=== PATIENT | male | born 1985 | race Caucasian/White ===

== ENCOUNTER 2016-11-14 03:31 | Emergency (ER) | payer MEDICARE, MEDICAID ==
[~2016-11-14 03:31] MED LIST: CELE10TA; KEPPRA; VICO5TAB; XANA0.25
[2016-11-14] MEDS ORDERED: MORPHINE 4 MG/ML 1ML SYRINGE As Ordered ONE ×2 (03:45→04:03)
[2016-11-14] MEDS ORDERED: ONDANSETRON 4MG/2ML VIAL (J2405) As Ordered ONE (03:45)
[2016-11-14 04:00] LABS: CARBOXYHEMOGLOBIN 2.1 % (0.0-1.5); VENOUS BASE EXCESS -1.1 (-2.0-2.0); VENOUS O2 SATURATION 65.7 % (60.0-80.0); VENOUS PARTIAL PRESSURE CO2 55.9 mmHg (38.0-50.0); VENOUS PARTIAL PRESSURE O2 36.2 mmHg (30.0-50.0); VENOUS STANDARD HCO3 22.7 MEQ/L; VENOUS TOTAL CO2 28.4 MEQ/L (24.0-28.0)
[2016-11-14] MEDS ORDERED: HYDROmorphone HCL 1 MG/ML SYRINGE (J1170) As Ordered ONE ×3 (04:30→07:49)
[2016-11-14] MEDS ORDERED: SILVER SULFADIAZINE 1% CR 50 GM JAR As Ordered ONE (05:50)
[2016-11-14] MEDS ORDERED: KETOROLAC 30 MG/ML VIAL (J1885) As Ordered ONE (07:08)
--- NOTE | 2016-11-14 08:16 | REP ---
Portable chest: Single view. History: Cough Comparison study: November 12, 2015. Findings: EKG monitoring electrodes overlie the chest. Lungs are well inflated and clear. Pleural angles are sharp. Heart is not enlarged. Pulmonary vasculature is not increased. Impression: No active disease. Signed by Onesimo Norton MD 11/14/2016 08:08 A
--- NOTE | 2016-11-14 08:31 | REP ---
Right foot series: AP and lateral two views. History: Deformity and swelling. Findings: There is Achilles and plantar calcaneal spurring. Fragmented spurring is seen at the distal Achilles tendon insertion. Overall mineralization pattern is normal. No fracture is seen. Impression: Limited study. No acute bony abnormality. Heel spurs. Signed by Onesimo Norton MD 11/14/2016 08:47 A
[2016-11-14] MEDS ORDERED: ADACEL/BOOSTRIX VACCINE (DIPHTH/PERTUSS/ACELL/TETANUS)0.5ML SYR (90715) As Ordered ONE (08:52)
[2016-11-14] MEDS ORDERED: PERCOCET 5MG/325MG TAB As Ordered ONE (08:52)
[2016-11-14] MEDS ORDERED: POLYSPORIN TOPICAL OINTMENT 15GM As Ordered ONE (09:51)
[2016-11-14] MEDS ORDERED: OXYCODONE/APAP 5MG/325MG(BULK) 1 TAB TAB As Ordered ONE (10:08)
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
== END 2016-11-14 10:22 | disposition home or self-care (01) ==
LOC: M ED 03:31
DX: J70.5 Respiratory conditions due to smoke inhalation (principal); T34.821A Frostbite with tissue necrosis of right foot, initial encounter; T20.17XA Burn of first degree of neck, initial encounter; T20.211A Burn of second degree of right ear [any part, except ear drum], initial encounter; T20.212A Burn of second degree of left ear [any part, except ear drum], initial encounter; X00.1XXA Exposure to smoke in uncontrolled fire in building or structure, initial encounter; X31.XXXA Exposure to excessive natural cold, initial encounter; Y92.018 Other place in single-family (private) house as the place of occurrence of the external cause; F41.9 Anxiety disorder, unspecified; Z87.820 Personal history of traumatic brain injury; R56.9 Unspecified convulsions; Z91.018 Allergy to other foods; F17.210 Nicotine dependence, cigarettes, uncomplicated
CPT/HCPCS: 71010; 73620; 82375; 82803; 90471; 90715; 96374; 96375; 96376; 99285; J1170; J1885; J2405

== ENCOUNTER 2019-04-30 19:59 | Emergency (ER) | payer MEDICAID, MEDICARE, SELFPAY ==
[~2019-04-30] VITALS: Ht 182.9 cm; Wt 109.1 kg
[2019-04-30 20:00] VITALS: BP 131/84
[2019-04-30] MEDS ORDERED: DOXYCYCLINE HYCLATE 100 MG TAB PO ONE (21:15)
== END 2019-04-30 21:23 | disposition home or self-care (01) ==
LOC: M ED 19:59
DX: S20.96XA Insect bite (nonvenomous) of unspecified parts of thorax, initial encounter (principal); W57.XXXA Bitten or stung by nonvenomous insect and other nonvenomous arthropods, initial encounter; Y92.9 Unspecified place or not applicable; Y93.9 Activity, unspecified; Y99.9 Unspecified external cause status; I10 Essential (primary) hypertension; Z87.820 Personal history of traumatic brain injury; R56.9 Unspecified convulsions; Z72.0 Tobacco use; Z91.018 Allergy to other foods

== ENCOUNTER 2020-04-01 17:13 | Emergency (ER) | payer SELFPAY ==
[~2020-04-01] VITALS: Ht 182.9 cm; Wt 109.1 kg
[2020-04-01] MEDS ORDERED: LORazepam 2 MG/ML VIAL IV STA (17:29)
[2020-04-01] MEDS ORDERED: NS 1,000 ML IV ONE (17:30)
[2020-04-01 17:46] LABS: BASO % 0.4 % (0.0-1.0); EOS % 0.1 % (0.0-3.0); HEMATOCRIT 46.9 % (42.0-52.0); HEMOGLOBIN 16.2 g/dl (13.5-17.5); LYMPH # 2.5 10^3/uL (1.5-5.0); LYMPH % 21.9 % (24.0-44.0); MEAN CORPUSCULAR HEMOGLOBIN 29.7 pg (27.0-33.0); MEAN CORPUSCULAR HGB CONC 34.5 g/dl (32.0-36.5); MEAN CORPUSCULAR VOLUME 85.9 fl (80.0-96.0); MONO # 0.7 10^3/uL (0.0-0.8); MONO % 6.6 % (0.0-5.0); NEUTROPHILS # 7.9 10^3/uL (1.5-8.5); NEUTROPHILS % 70.6 % (36.0-66.0); PLATELET COUNT, AUTOMATED 232 10^3/uL (150-450); RED BLOOD COUNT 5.46 10^6/uL (4.30-6.10); WHITE BLOOD COUNT 11.2 10^3/uL (4.0-10.0)
[2020-04-01] MEDS ORDERED: LORazepam 2 MG/ML VIAL As Ordered ONE (17:52)
--- NOTE | 2020-04-01 18:04 | REPVR ---
PROCEDURE INFORMATION: Exam: CT Head Without Contrast Exam date and time: 04/01/2020 5:54 PM Age: 34 years old Clinical indication: Injury or trauma; Fall; Initial encounter; Blunt trauma (contusions or hematomas); Additional info: Fall; Seizure TECHNIQUE: Imaging protocol: Computed tomography of the head without contrast. Axial and coronal reformatted images were created and reviewed. Radiation optimization: All CT scans at this facility use at least one of these dose optimization techniques: automated exposure control; mA and/or kV adjustment per patient size (includes targeted exams where dose is matched to clinical indication); or iterative reconstruction. COMPARISON: CT Head without contrast 06/22/2016 11:05 AM FINDINGS: Brain: Left inferior frontal and temporal encephalomalacia, similar to prior. No CT evidence of acute intracranial hemorrhage or acute territorial infarction. No significant mass effect or midline shift. Basal cisterns patent. Ventricles: Normal in size and configuration. Bones/joints: No acute osseous abnormality. Mild chronic deformity of the right lamina papyracea. Sinuses: Grossly unremarkable. Mastoid air cells: Grossly unremarkable. Soft tissues: Grossly unremarkable. IMPRESSION: 1. No CT evidence of acute intracranial pathology. 2. Additional findings, as above. Electronically signed by: Jose Craft On 04/01/2020 18:04:43 PM
--- NOTE | 2020-04-01 18:08 | REPVR ---
PROCEDURE INFORMATION: Exam: CT Cervical Spine Without Contrast Exam date and time: 04/01/2020 5:54 PM Age: 34 years old Clinical indication: Injury or trauma; Fall; Initial encounter; Blunt trauma; Additional info: Fall; Seizure TECHNIQUE: Imaging protocol: Computed tomography images of the cervical spine without contrast. Axial, coronal and sagittal reformatted images were created and reviewed. Radiation optimization: All CT scans at this facility use at least one of these dose optimization techniques: automated exposure control; mA and/or kV adjustment per patient size (includes targeted exams where dose is matched to clinical indication); or iterative reconstruction. COMPARISON: CT Spine,cervical w/o contrast 06/22/2016 11:05 AM FINDINGS: Vertebrae: Mild straightening of the normal cervical lordosis. Alignment anatomic. No CT evidence of acute fracture, dislocation or subluxation. Vertebral body heights maintained. Discs/Spinal canal/Neural foramina: Mild multilevel degenerative changes, characterized by disc space narrowing, osteophytosis and uncovertebral and facet joint hypertrophy. Mild resultant spinal canal narrowing at C5-C6 and C6-C7. No significant neural foraminal stenosis. Soft tissues: Grossly unremarkable. Lungs: Grossly unremarkable. IMPRESSION: 1. No CT evidence of acute cervical spine traumatic injury. 2. Additional findings, as above. Electronically signed by: Jose Craft On 04/01/2020 18:08:41 PM
[2020-04-01 18:21] LABS: ALBUMIN 4.2 GM/DL (3.2-5.2); ALT/SGPT 47 U/L (12-78); BILIRUBIN,TOTAL 0.7 MG/DL (0.2-1.0); BLOOD UREA NITROGEN 10 MG/DL (7-18); CALCIUM LEVEL 8.7 MG/DL (8.5-10.1); CARBON DIOXIDE LEVEL 22 MEQ/L (21-32); CHLORIDE LEVEL 111 MEQ/L (98-107); CK-MB VALUE MASS 1.1 NG/ML (<3.6); CPK CREATINE PHOSPHOKINASE 209 U/L (39-308); CREATININE FOR GFR 1.24 MG/DL (0.70-1.30); GLOMERULAR FILTRATION RATE > 60.0 (>60); GLUCOSE, FASTING 95 MG/DL (70-100); MB/CK RELATIVE INDEX 0.53 (< OR =4); POTASSIUM SERUM 3.5 MEQ/L (3.5-5.1); SODIUM LEVEL 144 MEQ/L (136-145); TOTAL PROTEIN 7.7 GM/DL (6.4-8.2); TROPONIN I < 0.02 NG/ML (< 0.10)
[2020-04-01 18:45] VITALS: BP 147/73
--- NOTE | 2020-04-02 04:29 | REP ---
Clinical: Trauma left-sided chest pain . Comparison: 11/14/2016 . Findings: The mediastinum and cardiac silhouette are stable and within normal limits for portable technique. The lung cano are clear without acute consolidation, effusion, or pneumothorax. Skeletal structures are intact. Impression: No acute cardiopulmonary process appreciated. Electronically Signed by Terry Dasilva MD 04/02/2020 04:21 A
== END 2020-04-01 19:41 | disposition home or self-care (01) ==
LOC: M ED 17:13 → EDBD 17:13 → M ED 19:41
DX: R56.9 Unspecified convulsions (principal); F43.0 Acute stress reaction; S20.219A Contusion of unspecified front wall of thorax, initial encounter; X58.XXXA Exposure to other specified factors, initial encounter; Y92.89 Other specified places as the place of occurrence of the external cause; Z91.018 Allergy to other foods; F17.210 Nicotine dependence, cigarettes, uncomplicated
CPT/HCPCS: 70450; 71045; 72125; 80053; 80180; 82550; 82553; 84484; 85025; 93041; 94760; 96361; 96374; 99284; J2060